=== PATIENT | male | born 1960 | race African-American/Black ===

== ENCOUNTER 2017-03-11 00:14 | Emergency (ER) | payer SELFPAY ==
[2017-03-11] MEDS ORDERED: ACETAMINOPHEN 325 MG TABLET PO ONE (00:57)
[2017-03-11] MEDS ORDERED: OXYCODONE-ACETAMINOPHEN 5-325 MG TABLET PO ONE (01:37)
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
[2017-03-11 03:36] VITALS: BP 137/89
== END 2017-03-11 03:38 | disposition home or self-care (01) ==
LOC: ER 00:14
PROC: 2W3DX1Z Immobilization of Left Lower Arm using Splint (ICD-10-PCS; principal; 2017-03-11)
DX: S46.912A Strain of unspecified muscle, fascia and tendon at shoulder and upper arm level, left arm, initial encounter (principal); S63.502A Unspecified sprain of left wrist, initial encounter; M25.512 Pain in left shoulder; M25.532 Pain in left wrist; W11.XXXA Fall on and from ladder, initial encounter; Y92.009 Unspecified place in unspecified non-institutional (private) residence as the place of occurrence of the external cause; F17.200 Nicotine dependence, unspecified, uncomplicated
CPT/HCPCS: 99283

== ENCOUNTER 2017-08-06 11:20 | Emergency (ER) | payer SELFPAY ==
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
[2017-08-06] MEDS ORDERED: KETOROLAC TROMETHAMINE 60 MG/2 ML SDV IM ONE (12:25)
[2017-08-06] MEDS ORDERED: DEXAMETHASONE SOD PHOS INJ 10 MG/1 ML VIAL IM ONE (12:25)
--- NOTE | 2017-08-06 13:10 | RADIOLOGY REPORT (SQ) ---
EXAM DESCRIPTION: PELVIS AP COMPLETED DATE/TIME: 08/06/2017 12:53 pm REASON FOR STUDY: pain low back and bilateral hip COMPARISON: [facility] 11/06/2014 NUMBER OF VIEWS: One view TECHNIQUE: AP Pelvis LIMITATIONS: None. FINDINGS: MINERALIZATION: Normal. HIPS: No acute fracture or dislocation. No worrisome bone lesions. PELVIS AND SACRUM: No acute fracture or dislocation. No worrisome bone lesions. PUBIS AND ISCHIUM: No acute fracture. LOWER LUMBAR SPINE: No significant findings as visualized. SOFT TISSUES: Old shrapnel over the right gluteal region OTHER: No other significant finding. IMPRESSION: No acute fracture or malalignment. Hip joint spaces are well maintained. No SI joint a rthropathy. Old shrapnel over the right gluteal region TECHNICAL DOCUMENTATION: JOB ID: [id number] [employer]- All Rights Reserved
--- NOTE | 2017-08-06 13:11 | RADIOLOGY REPORT (SQ) ---
EXAM DESCRIPTION: L SPINE WHOLE COMPLETED DATE/TIME: 08/06/2017 12:53 pm REASON FOR STUDY: pain low back and bilateral hip COMPARISON: Pelvis films same date NUMBER OF VIEWS: Five views including obliques. TECHNIQUE: AP, lateral, oblique, and sacral radiographic images acquired of the lumbar spine. LIMITATIONS: None. FINDINGS: MINERALIZATION: Normal. SEGMENTATION: Normal. No transitional anatomy. ALIGNMENT: Normal. VERTEBRAE: Maintained height. No fracture or worrisome bone lesion. DISCS: Preserved height. No significant osteophytes or end plate irregularity. POSTERIOR ELEMENTS: Pedicles and facets are intact. No pars defect or posterior arch defects. Bilat eral L4-5 facet arthropathy HARDWARE: None in the spine. PARASPINAL SOFT TISSUES: Old shrapnel right gluteal region PELVIS: Intact as visualized. No fractures or worrisome bone lesions. SI joints intact. OTHER: No other significant finding. IMPRESSION: Lower lumbar facet arthropathy TECHNICAL DOCUMENTATION: JOB ID: [id number] [employer]- All Rights Reserved
[2017-08-06 14:12] VITALS: BP 122/77
== END 2017-08-06 13:53 | disposition home or self-care (01) ==
LOC: ER 11:20
DX: G89.29 Other chronic pain (principal); M54.9 Dorsalgia, unspecified; F17.210 Nicotine dependence, cigarettes, uncomplicated
CPT/HCPCS: 99283; 96372; 72110; 72170; J1885; J1100

== ENCOUNTER 2017-11-20 12:17 | Emergency (ER) | payer SELFPAY ==
[2017-11-20] MEDS ORDERED: LIDOCAINE 5% (700 MG) TRANSDERMAL ADH..PATCH TP ONE (13:20)
[2017-11-20] MEDS ORDERED: KETOROLAC TROMETHAMINE INJ/PF 30 MG/1 ML SDV IM ONE (13:20)
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
[2017-11-20 13:58] VITALS: BP 124/75
== END 2017-11-20 13:58 | disposition home or self-care (01) ==
LOC: ER 12:17
DX: G89.29 Other chronic pain (principal); M54.5 Low back pain; S31.809S Unspecified open wound of unspecified buttock, sequela; W34.00XS Accidental discharge from unspecified firearms or gun, sequela; Z18.89 Other specified retained foreign body fragments
CPT/HCPCS: 99283; 96372; J1885

== ENCOUNTER 2018-01-20 15:11 | Emergency (ER) | payer MEDICAID ==
[2018-01-20] MEDS ORDERED: DEXAMETHASONE SOD PHOS INJ 10 MG/1 ML VIAL IM ONE (16:02)
[2018-01-20] MEDS ORDERED: KETOROLAC TROMETHAMINE INJ/PF 30 MG/1 ML SDV IM ONE (16:02)
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
[2018-01-20 16:23] VITALS: BP 139/85
== END 2018-01-20 16:23 | disposition home or self-care (01) ==
LOC: ER 15:11
DX: G89.29 Other chronic pain (principal); M54.5 Low back pain; M79.604 Pain in right leg; R25.2 Cramp and spasm
CPT/HCPCS: 99283; 96372; J1885; J1100